=== PATIENT | female | born 1950 | race Caucasian/White ===

== ENCOUNTER 2021-06-14 17:57 | Inpatient (IN) | payer MEDICAID, SELFPAY ==
[~2021-06-14] VITALS: Ht 162.6 cm; Wt 49.9 kg
[2021-06-14 18:26] VITALS: BP 176/98
[2021-06-14 19:04] LABS: BASOPHILS % (AUTO) 0.7 % (0.0-2.0); EOSINOPHILS % (AUTO) 0.3 % (0.0-4.0); HEMATOCRIT 44.3 % (36-48); HEMOGLOBIN 14.9 g/dL (12.0-16.0); LYMPHOCYTES # (AUTO) 1.5 K/uL (2.5-16.5); LYMPHOCYTES % (AUTO) 22.7 % (20.5-51.1); MEAN CORPUSCULAR HEMOGLOBIN 32 pg (27-31); MEAN CORPUSCULAR HGB CONC 34 g/dL (33-37); MEAN CORPUSCULAR VOLUME 93.7 fL (80-94); MONOCYTES # (AUTO) 0.4 K/uL (0.8-1.0); MONOCYTES % (AUTO) 5.7 % (1.7-9.3); NEUTROPHILS # (AUTO) 4.5 K/uL (1.8-7.7); NEUTROPHILS % (AUTO) 70.6 % (42.2-75.2); PLATELET COUNT (AUTO) 203 K/uL (140-450); RED BLOOD CELL COUNT(AUTO) 4.72 MIL/uL (4.20-5.40); RED CELL DISTRIBUTION WIDTH 14.5 % (11.6-13.7); WHITE BLOOD COUNT (AUTO) 6.4 K/uL (4.8-10.8)
--- NOTE | 2021-06-14 19:05 | NUR ---
BIBA BLS TO ER BED 7
[2021-06-14 19:56] LABS: ALBUMIN 3.5 g/dL (3.4-5.0); ANION GAP 13.6 (8-16); ASPARTATE AMINOTRANSFERASE 33 U/L (15-37); CARBON DIOXIDE 24.5 mmol/L (21-32); CHLORIDE 102 mmol/L (98-107); CREATININE 1.1 mg/dL (0.6-1.3); GLUCOSE 108 mg/dL (74-106); POTASSIUM 4.1 mmol/L (3.5-5.1); SODIUM SERUM 136 mmol/L (136-145); TOTAL BILIRUBIN 0.5 mg/dL (0.0-1.0); UREA NITROGEN, BLOOD 29 mg/dL (7-18)
[2021-06-14 19:58] LABS: ACETAMINOPHEN < 0.5 ug/ml (10-30); SALICYLATE < 2.8 mg/dL (2.8-20.0)
--- NOTE | 2021-06-14 20:14 | NUR ---
70 YO/F BIBA FROM HOME, PER PT REPORTS SHE WAS JUST RIN HERE BECAUSE HER HOUSE IS FILTHY AND HAS TOO MANY CATS. PT REPORTS HAVING 15 CATS. PT DENIES ANY PAIN, CHEST PAIN, SOB, FEVERS, CHILLS, N/V/D. PT LAST MEAL WAS EARLIER TODAY FOR LUNCH TIME, LAST BM THIS MORNING. PT DENIES ANY SYMPTOMS. AOX4, GCS 15. PT LAYING IN BED LOCKED IN LOWEST POSITION W X2 SIDERAILS UP FOR PT SAFETY. PT HYPERTENSIVE AT 168/72 BUT OTHERWISE VSS. BREATHING EVEN AND UNLABORED. NAD NOTED, WILL CONTINUE TO MONITOR. PMH: DENIES ALLERGIES: DENIES
--- NOTE | 2021-06-14 20:19 | NUR ---
PT AMBULATED TO BATHROOM W STEADY GAIT. URINE SAMPLE COLLECTED AND SENT TO LAB. PTOVIDED PT W BLANKET AND SANDHICH AND MILK.
--- NOTE | 2021-06-14 21:04 | NUR ---
PT ON PHONE W DAUGHTER KULDIP.
[2021-06-14 21:48] LABS: BILIRUBIN,URINE NEGATIVE (NEGATIVE); BLOOD, URINE NEGATIVE (NEGATIVE); COLOR,URINE YELLOW (YELLOW); LEUKOCYTE ESTERASE ,URINE TRACE (NEGATIVE); NITRITE, URINE NEGATIVE (NEGATIVE); UGLUCOSE NEGATIVE (NEGATIVE)
[2021-06-14 22:00] LABS: APPEARANCE,URINE HAZY (CLEAR)
[2021-06-14 22:06] LABS: BARBITURATE, URINE NEGATIVE ng/ml (NEG <=200); BENZODIAZEPINE, URINE NEGATIVE ng/mL (NEG <=200); CANNABINOID, URINE NEGATIVE ng/mL (NEG <=50); COCAINE, URINE NEGATIVE ng/mL (NEG <=300); OPIATE, URINE NEGATIVE ng/mL (NEG <=2000); PHENCYCLIDINE SCREEN,URINE NEGATIVE ng/mL (NEG <=25)
--- NOTE | 2021-06-14 22:17 | NUR ---
PT LAYING IN BED READING A MAGAZINE. ALL NEEDS MET.
[2021-06-14 22:29] LABS: RBC,URINE 0-5 /HPF (0-5)
--- NOTE | 2021-06-14 22:57 | NUR ---
PACKET FAXED TO [facility].
--- NOTE | 2021-06-15 00:02 | NUR ---
PT APPEARS TO BE RESTING W EYES CLOSED IN L LATERAL POSITION W XW SIDERAILS UP FOR SAFETY. BLANKET ON, BREATHING EVEN AND UNLABORED. VSS. NAD NOTED, WILL CONTINUE TO MONITOR.
--- NOTE | 2021-06-15 00:57 | NUR ---
PT BP 162/75, ERMD MADE AWARE.
[2021-06-15] MEDS ORDERED: CLONIDINE HYDROCHLORIDE 0.1 MG TAB PO ONE (01:00)
[2021-06-15] MEDS ORDERED: cephALEXin 500 MG CAP PO ONE (01:40)
--- NOTE | 2021-06-15 02:00 | NUR ---
PT APPEARS TO BE RESTING W EYES CLOSED IN SUPINE POSITION W X2 SIDERAILS UP FOR SAFETY. BLANKET ON, BREATHING EVEN AND UNLABORED. VSS. NAD NOTED, WILL CONTINUE TO MONITOR.
--- NOTE | 2021-06-15 04:17 | NUR ---
PT APPEARS TO BE RESTING W EYES CLOSED IN R LATERAL POSITION W X2 SIDERAILS UP FOR SAFETY. BLANKET ON, BREATHING EVEN AND UNLABORED. VSS. NAD NOTED, WILL CONTINUE TO MONITOR.
--- NOTE | 2021-06-15 04:57 | NUR ---
PT AMBULATED TO BATHROOM W STEADY GAIT.
--- NOTE | 2021-06-15 06:00 | NUR ---
AWAKE , NO COMPLAIN MADE
--- NOTE | 2021-06-15 06:23 | NUR ---
NO CHANGE IN PT STATUS. PT APPEARS TO BE RESTING W EYES CLOSED IN L LATERAL POSITION W X2 SIDERAILS UP FOR SAFETY. VSS.
--- NOTE | 2021-06-15 06:23 | NUR ---
Vernon taveras in [facility] - 06/15/21 at 0625 by ZOILA NO CHANGE IN PT STATUS.
--- NOTE | 2021-06-15 07:16 | NUR ---
Pt report given to MECHELLE MCGHEE. Transfer of care at this time.
--- NOTE | 2021-06-15 07:16 | NUR ---
Vernon taveras in [facility] - 06/15/21 at 0720 by ZOILA Pt report given to JALEESA MCGHEE. Transfer of care at this time.
--- NOTE | 2021-06-15 07:17 | NUR ---
REPORT RECEIVED FROM JALEESA KAPLAN FOR PATIENT CONTINUITY OF CARE.
[2021-06-15] MEDS ORDERED: NITR100C7 PO (07:28)
--- NOTE | 2021-06-15 08:10 | NUR ---
PATIENT PROVIDED WITH BREAKFAST TRAY AT BEDSIDE, ALL PATIENT NEEDS MET AT THIS TIME, WILL CONTINUE TO MONITOR.
--- NOTE | 2021-06-15 09:10 | NUR ---
PATIENT COMPLETED 100% OF BREAKFAST TRAY AT THIS TIME.
--- NOTE | 2021-06-15 09:35 | NUR ---
PATIENT READING QUIETLY IN BED, NO SIGNS OF DISTRESS NOTED AT THIS TIME. SAFETY PRECAUTIONS CONTINUED IN PLACE. WILL CONTINUE TO MONITOR.
[2021-06-15] MEDS ORDERED: MAG SULF 2000 MG/WATER PREMIX 50 ML IV PRN (10:00)
[2021-06-15] MEDS ORDERED: LORazepam 2 MG/ML VIAL IM/IVP PRN (10:00)
[2021-06-15] MEDS ORDERED: ACETAMINOPHEN 325 MG TAB PO PRN (10:00)
[2021-06-15] MEDS ORDERED: ONDANSETRON 4 MG/2 ML VIAL IVP PRN (10:00)
[2021-06-15] MEDS ORDERED: DOCUSATE SODIUM 100 MG GELCAP PO PRN (10:00)
[2021-06-15] MEDS ORDERED: POTASSIUM CHLORIDE 10 MEQ TABER PO PRN (10:00)
[2021-06-15] MEDS ORDERED: HYDROcodone/APAP 5/325 MG 1 TAB TAB PO PRN (10:00)
[2021-06-15] MEDS ORDERED: MORPHINE SULFATE 2 MG/ML SYR IVP PRN (10:00)
[2021-06-15] MEDS ORDERED: SODIUM PHOS / POTASSIUM PHOS 1 PKT PDR PO PRN (10:00)
[2021-06-15] MEDS ORDERED: ZOLPIDEM 5 MG TAB PO PRN (10:00)
[2021-06-15] MEDS: NACL 0.9% 1,000 ML IV SCH ×2 (10:32→21:43)
--- NOTE | 2021-06-15 11:05 | NUR ---
Patient will be admitted to care of DR. LEON. Admited to MED SURG. Will go to room 128 B. Belongings list completed. Report to JALEESA BLANCO.
--- NOTE | 2021-06-15 11:06 | NUR ---
Chart checked and completed. The patient's care was reviewed and supervised by Angy Randall RN.
[2021-06-15 11:27] LABS: PHOSPHORUS 2.7 mg/dL (2.5-4.9)
--- NOTE | 2021-06-15 11:53 | NUR ---
RECEIVED PT FROM ER, PT IN STABLE CONDITION. PT AOx4, VSS, NAD NOTED. PT HAS LAC 20G RUNNING NS@100CC. WILL CONTINUE TO MONITOR.
[2021-06-15 12:05] VITALS: BP 142/76
--- NOTE | 2021-06-15 14:39 | NUR ---
DC PLANNING: DC PLANNING: THE PATIENT WAS BIBA FROM HOME ON A 5150 HOLD FOR BEING GRAVELY DISABLED. CHENG SPOKE WITH THE PATIENT AT BEDSIDE AND CONFIRMED HER ADDRESS AND PHONE NUMBER. CONTACTS FOR THE PATIENT ARE HER DAUGHTER KULDIP SINCLAIR WHO LIVES IN [facility], PHONE NUMBER [phone], FRIEND WING, PHONE NUMBER [phone], AND FRIEND SUDHEER WHO LIVES ON [place] AND HELPS THE PATIENT, PHONE NUMBER [phone]. CM SPOKE WITH THE PATIENT AT BEDSIDE, SHE STATES THAT SHE KNOWS THE HOUSE HAS GOTTEN OUT OF CONTROL. [facility] [employer] GAVE HER A WEEK TO GET IT CLEANED BUT REVISITED AFTER 3 DAYS. THE PATIENT HAD MULTIPLE ANIMALS, MANY OF WHICH WERE REMOVED BY ANIMAL CONTROL. SHE LIVES WITH HER WHO IS ALSO IN THE HOSPITAL FOR A DX OF GRAVE DISABILITY AND IS INDEPENDENT IN ALL ACTIVITIES. NO DME OR H/O HOME HEALTH. 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 THE HOUSE DOES NOT HAVE A LOCK, THE PATIENT IS UNINSURED AND HAS NOT SEEN A DOCTOR SINCE SHE HAD HER CHILDREN. THE PATIENT WAS ALERT AND AWARE OF THE CURRENT SITUATION AND SOME OF WHAT IS NEEDED TO CORRECT IT SUCH GETTING THE HOUSE CLEARED OUT AND CLEANED BUT DID NOT FEEL THAT THE LACK OF A DOOR LOCK, INSURANCE AND CLEAN LITTER BOXES FOR HER CATS WERE OUTSIDE OF THE NORM. CHENG SPOKE WITH THE PATIENTS DAUGHTER CHOCO WHO STATES SHE IS AWARE THAT HER MOTHER IS IN THE HOSPITAL, STATES THAT SPOUSE IS NOT HER FATHER. ASKED WHY MOTHER AND MR PEREZ WERE GRAVELY ILL, CHENG EXPLAINED THAT THEY WERE ADMITTED FOR BEING GRAVELY DISABLED BECAUSE OF THE CONDITION OF THE HOUSE. SHE STATES THAT SHE HAS VISITED HER MOTHER BUT WAS NEVER ALLOWED IN THE HOUSE HER MOTHER STATED IT WAS TOO DIRTY. WAS NOT AWARE THAT HER MOTHER IS UNINSURED OR THE FRONT DOOR WITHOUT A LOCK. CHENG ASKED HOW KULDIP PLANS TO ASSIST WITH THE OVERALL SITUATION, SHE STATES THAT A FRIEND OF THE PATIENT, WING IS GOING TO ASSIST WITH CLEANING AND HAS GOTTEN A DUMPSTER. CHENG ENDORSED THAT A CLEANING CREW MIGHT BE NEEDED AND STATED THAT WING WILL BE CALLED TO SEE IF SHE HAS RESOURCES FOR CLEANING THE HOUSE. THE PATIENT HAD STATED THAT THE ONLY INCOME SOURCE IS HER SPOUSE SSI AND SNF WHICH IS $1000/MONTH BUT THAT THEY HAD AN INHERITANCE FROM HER HUSBANDS MOTHER AND ARE ABLE TO AFFORD A CLEANING CREW AND CONDUCTOR/ENGINEER. CHOCO WILL BE COMING TO VISIT NEXT SUNDAY AND ASKED IF HE PATIENT CAN DC TO ANOTHER HOUSE OR HOTEL, CHENG ENDORSED THAT IF THEY ARE NOT ON A 5150 THIS MIGHT BE POSSIBLE. AUGUSTO LEFT FOR WING ASKING FOR AN UPDATE ON THE HOUSE, CHENG WILL FOLLOW. Addendum: 06/15/21 at 1514 by Shanice Grace CM Amended: Links added. Addendum: 06/15/21 at 1735 by Shanice Grace CM DC PLANNING: PATIENT VISITED BY [facility] [employer] AND ANIMAL RESCUE. OFFICE MUKESH FRANKLIN ([phone]) WAS UPDATED ON CHENG'S ATTEMPTS TO SPEAK WITH FAMILY AND FRIENDS REGARDING CLEANING THE HOUSE. DAIN ROMAN ALSO CAME TO SPEAK WITH THE PATIENT SHE HAS A CAT RESCUE. STATED THAT ANIMAL CONTROL WAS AT THE PATIENTS HOUSE AND THAT THEY WERE GOING TO TAKE HER CATS UNLESS THE PATIENT WAS WILLING TO SIGN PAPERWORK. PAPERWORK SIGNED BY THE PATIENT, CHENG THEN RECEIVED A CALL FROM HER FRIEND WING KRAUSE. WING IS A CO-TRUSTEE WITH THE PATIENT FOR MR. PEREZ AND HIS FINANCES AND IS ARRANGING FOR A CREW TO CLEAN THE HOUSE AND MAKE REPAIRS. SHE WILL CALL THE BANK TO SEE IF THE CURRENT SIGNED AND NOTARIZED FORMS CAN BE USED TO ACCESS FUNDS TO PAY FOR REPAIRS. PER WING AND CODE ENFORCEMENT THERE WAS NO RUNNING WATER IN THE HOUSE AND THE TOILETS ARE NOT WORKING. WING WAS GIVEN THE CONTACT INFORMATION FOR THE DAIRY ASSOCIATE TO UPDATE HER ON EFFORTS TO GET THE HOUSE TO CODE. CHENG WILL FOLLOW. Addendum: 06/16/21 at 1533 by Shanice Grace CM DC PLANING: CHENG RECEIVED A CALL FROM SCOTT Brady, DAIRY ASSOCIATE FOR [employer]. HE ASKED THAT A SIGNED STATEMENT BE SENT TO HIM STATING THAT THE PATIENT AND HER SPOUSE ARE GIVING THEIR FRIEND WING KRAUSE PERMISSION TO COME ON TO THEIR PROPERTY TO START CLEANING AND REPAIRING THEIR HOUSE. LETTER TYPED AND SIGNED BY THE PATIENT AND HER SPOUSE AND EMAILED TO SCOTT. CHENG ALSO SPOKE WITH THEIR FRIEND IWNG TO UPDATE HER ON CODE ENFORCEMENTS REQUEST AND ALSO TO REMIND HER THAT THE PATIENTS DOG IS WITH THE HUMAN SOCIETY AND NEEDS TO BE PICKED UP, SHE STATES SHE WILL DO THIS. CHENG WILL FOLLOW FOR NEEDS. Addendum: 06/17/21 at 1226 by Shanice Grace CM DC PLANNING: CHENG SPOKE WITH THE PATIENTS DAUGHTER CHOCO TO UPDATE HER ON THE OVERALL SITUATION WITH HER MOTHER AND STEP FATHER. CHOCO STATES THAT HE SON AND DAUGHTER ARE WILLING TO HAVE THIS COUPLE STAY WITH THEM, INCLUDING THEIR DOG TEETEE. THE HOUSE ARE IN [place], UNCLEAR WHICH AREA THE PATIENT WILL GO TO, CHOCO WILL CALL WITH FINAL DETERMINATION. THE PATIENT MAY NEED TO STAY IN A MOTEL TEMPORARILY TO FINALIZE FINANCES AND OTHER ARRANGEMENTS. THEIR FRIEND WING WILL COME TO VISIT TODAY TO DISCUSS THE ARRANGEMENTS SHE HAS MADE FOR HOUSE CLEAN UP AND REPAIR AND TO DISCUSS FINANCIAL ARRANGEMENTS. PATIENT SCHEDULED FOR TELEPSYCH EVALUATION TODAY AT 1400, CHENG WILL BE THERE TO ADDRESS DC PLANNING AND WILL FOLLOW FOR NEEDS. Addendum: 06/17/21 at 1624 by Shanice Grace CM DC PLANNING: PATIENT CLEARED BY PSYCH, RECOMMENDING DEMENTIA W/U. VM LEFT FOR THE PATIENTS DAUGHTER CHOCO SINCLAIR ([phone]) LETTING HER KNOW THAT HER MOTHER AND STEP FATHER WILL BE DISCHARGING AND ASKING HER TO MAKE ARRANGEMENTS FOR WHERE THEY'RE GOING TO STAY. NO CALL BACK YET, CM ALSO SPOKE WITH THE PATIENT AND HER SPOUSE AT BEDSIDE TO LET THEM KNOW THAT THEY WILL NEED TO SPEAK WITH CHOCO AND THEIR FRIEND WING ([phone]) REGARDING ARRANGEMENTS WITH HOUSING AND MOVING FORWARD WITH CLEANING AND REPAIR OF THEIR HOUSE. ALSO ENDORSED THAT CM SPOKE WITH THE HUMAN SOCIETY IN [place] AND THAT THEY ARE HOLDING THEIR DOG TEETEE, AND THAT OFFICER ANTWAN VILCHIS IS THE ONE THAT THEY NEED TO SPEAK WITH REGARDING RELEASING THEIR DOG THERE IS A POTENTIAL COURT CASE. CM WILL FOLLOW FOR NEEDS.
--- NOTE | 2021-06-15 15:41 | NUR ---
Aware of patient and can assist with placement. Patient on hold for GD for a dirty home and unable to care for self and has an abundance of cats. Patient is alert and aware of situation. Intake information was discussed with Damian Knox/Ana. Intake faxed for review for placement.
[2021-06-15 16:00] VITALS: BP 146/84
--- NOTE | 2021-06-15 16:04 | NUR ---
[facility]
--- NOTE | 2021-06-15 16:23 | NUR ---
PATIENT HAS BEEN SCREENED AND CATEGORIZED MODERATE NUTRITION RISK. PATIENT WILL BE SEEN WITHIN 3-5 DAYS OF ADMISSION. BETTYE MENDEZ RD
--- NOTE | 2021-06-15 18:57 | NUR ---
PT IN STABLE CONDITION, SAFETY MEASURES IN PLACE. WILL ENDORSE TO RESUME WRITER RN.
--- NOTE | 2021-06-15 19:20 | NUR ---
ENDORSED CARE TO AGENT TICKETING GATE RN, PT IN STABLE CONDITION.
--- NOTE | 2021-06-15 19:20 | NUR ---
RECIEVED PT , AAOX4 , NID - O2 SAT WNL , IV SITE INTACT AND PATENT , CALL LIGHT WITHIN REACH . DENIES ANY PAIN . WILL CONT. TO MONITOR ,.
[2021-06-15 20:00] VITALS: BP 140/70
--- NOTE | 2021-06-16 | NUR ---
ROUND , NO COMPLAIN MADE .
[2021-06-16 04:00] VITALS: BP 150/100
[2021-06-16] MEDS: NACL 0.9% 1,000 ML IV SCH ×2 (06:00→16:26)
--- NOTE | 2021-06-16 06:00 | NUR ---
BP 150/100 - NO COMPLAIN MADE .
[2021-06-16 06:39] LABS: BASOPHILS % (AUTO) 0.7 % (0.0-2.0); EOSINOPHILS # (AUTO) 0.1 K/uL (0-0.4); EOSINOPHILS % (AUTO) 1.3 % (0.0-4.0); HEMATOCRIT 43.2 % (36-48); HEMOGLOBIN 14.3 g/dL (12.0-16.0); LYMPHOCYTES # (AUTO) 1.9 K/uL (2.5-16.5); LYMPHOCYTES % (AUTO) 36.6 % (20.5-51.1); MEAN CORPUSCULAR HEMOGLOBIN 31 pg (27-31); MEAN CORPUSCULAR HGB CONC 33 g/dL (33-37); MEAN CORPUSCULAR VOLUME 94.5 fL (80-94); MONOCYTES # (AUTO) 0.4 K/uL (0.8-1.0); NEUTROPHILS # (AUTO) 2.8 K/uL (1.8-7.7); NEUTROPHILS % (AUTO) 53.4 % (42.2-75.2); PLATELET COUNT (AUTO) 201 K/uL (140-450); RED BLOOD CELL COUNT(AUTO) 4.57 MIL/uL (4.20-5.40); RED CELL DISTRIBUTION WIDTH 14.4 % (11.6-13.7); WHITE BLOOD COUNT (AUTO) 5.2 K/uL (4.8-10.8)
--- NOTE | 2021-06-16 07:43 | NUR ---
RECEIVED REPORT FROM PERINATAL TECHNICIAN RN, PT IN STABLE CONDITION. WILL CONTINUE TO MONITOR.
--- NOTE | 2021-06-16 07:43 | NUR ---
ENDORSED - PT - STABLE , ENDORSED RODRIGUES TO RE ASSESS THE BP .
[2021-06-16 11:30] LABS: ALBUMIN 2.7 g/dL (3.4-5.0); ASPARTATE AMINOTRANSFERASE 24 U/L (15-37); CARBON DIOXIDE 20.1 mmol/L (21-32); CHLORIDE 108 mmol/L (98-107); CREATININE 0.9 mg/dL (0.6-1.3); GLUCOSE 96 mg/dL (74-106); MAGNESIUM 1.6 mg/dL (1.8-2.4); POTASSIUM 4.1 mmol/L (3.5-5.1); SODIUM SERUM 141 mmol/L (136-145); TOTAL BILIRUBIN 0.4 mg/dL (0.0-1.0); UREA NITROGEN, BLOOD 26 mg/dL (7-18)
[2021-06-16 11:54] VITALS: BP 148/92
--- NOTE | 2021-06-16 12:15 | NUR ---
Michael/Damian Knox. Called to inquire about review. They are still discussing with the physician however their concern is for the disposition of patient. Requesting for SW to assist with the direction of disposition once the psychiatiric care is addressed. this will help in placing the patient.
--- NOTE | 2021-06-16 18:31 | NUR ---
PER CM PT'S CAR KEYS WERE TO BE PICKED UP BY CODE ENFORCEMENT OFFICERS IN ORDER TO MOVE PT'S CAR. PT IS AWARE. KEYS PICKED UP BY OFFICER RIGOBERTO AND QUARTER FOLDER.
[2021-06-16 20:00] VITALS: BP 146/69
--- NOTE | 2021-06-16 22:03 | NUR ---
PATIENT IS AAOX4 ON ROOM AIR. NO S/S OF RESPIRATORY DISTRESS. RESPIRATION EVEN UNLABORED. NO COMPLAINTS OF PAIN. ALL SAFETY PRECAUTIONS ARE IN PLACE. CALL LIGHT WITHIN REACH. WILL CONTINUE TO MONITOR.
[2021-06-17] MEDS: NACL 0.9% 1,000 ML IV SCH ×3 (02:45→22:00)
--- NOTE | 2021-06-17 02:52 | NUR ---
ROUNDED PATIENT, PT IS SLEEPING. OBSERVED CHEST RISE AND FALL, UNLABORED BREATHING.
[2021-06-17 04:00] VITALS: BP 154/73
[2021-06-17 05:56] LABS: BASOPHILS % (AUTO) 0.4 % (0.0-2.0); EOSINOPHILS # (AUTO) 0.1 K/uL (0-0.4); EOSINOPHILS % (AUTO) 1.5 % (0.0-4.0); HEMATOCRIT 42.6 % (36-48); HEMOGLOBIN 14.4 g/dL (12.0-16.0); LYMPHOCYTES % (AUTO) 28.5 % (20.5-51.1); MEAN CORPUSCULAR HEMOGLOBIN 32 pg (27-31); MEAN CORPUSCULAR HGB CONC 34 g/dL (33-37); MEAN CORPUSCULAR VOLUME 93.5 fL (80-94); MONOCYTES # (AUTO) 0.6 K/uL (0.8-1.0); MONOCYTES % (AUTO) 8.7 % (1.7-9.3); NEUTROPHILS # (AUTO) 4.2 K/uL (1.8-7.7); NEUTROPHILS % (AUTO) 60.9 % (42.2-75.2); PLATELET COUNT (AUTO) 197 K/uL (140-450); RED BLOOD CELL COUNT(AUTO) 4.56 MIL/uL (4.20-5.40); RED CELL DISTRIBUTION WIDTH 14.4 % (11.6-13.7)
[2021-06-17 06:07] LABS: ANION GAP 11.3 (8-16); ASPARTATE AMINOTRANSFERASE 23 U/L (15-37); CARBON DIOXIDE 24.9 mmol/L (21-32); CHLORIDE 107 mmol/L (98-107); CREATININE 0.9 mg/dL (0.6-1.3); GLUCOSE 95 mg/dL (74-106); MAGNESIUM 1.9 mg/dL (1.8-2.4); POTASSIUM 4.2 mmol/L (3.5-5.1); SODIUM SERUM 139 mmol/L (136-145); TOTAL BILIRUBIN 0.4 mg/dL (0.0-1.0); UREA NITROGEN, BLOOD 26 mg/dL (7-18)
--- NOTE | 2021-06-17 07:30 | NUR ---
ENDORSED PATIENT TO NURSE THEODORE FOR CONTINUITY OF CARE. PT IS STABLE.
--- NOTE | 2021-06-17 07:31 | NUR ---
RECEIVED ENDORSEMENT FROM GUADALUPE LAZCANO FOR CONTINUITY OF CARE. PT IS STABLE IN BED. A&OX4. VERBALLY RESPONSIVE AND ABLE TO COMMUNICATE NEEDS. DENIES PAIN. ON ROOM AIR. RESPIRATIONS EVEN AND UNLABORED WITH NO APPARENT S/SX OF ACUTE DISTRESS. PATIENT IS AMBULATORY AND CONTINENT. SKIN IS INTACT. PATIENT'S IV SITE TO THE LAC 22G IS PATENT/INTACT WITH NS INFUSING AT 100 ML/HR. POC UPDATED. ALL SAFETY MEASURES IN PLACE. CALL LIGHT WITHIN REACH. WILL CONTINUE TO MONITOR.
[2021-06-17 08:39] LABS: ALBUMIN 2.8 g/dL (3.4-5.0)
--- NOTE | 2021-06-17 09:35 | NUR ---
PT ENDORSED TO AUBRIE MIN FOR CONTINUITY OF CARE. PT IS STABLE.
--- NOTE | 2021-06-17 09:36 | NUR ---
RECEIVED REPORT FROM THEODORE MIN. ASSUMED CARE FOR PT. RESPIRATIONS ARE EVEN AND UNLABORED. NO SIGNS OF DISTRESS NOTED. CALL LIGHT WITHIN REACH. ALL SAFETY MEASURES IN PLACE. WILL CONTINUE TO MONITOR.
--- NOTE | 2021-06-17 12:42 | NUR ---
Spoke with Stacey DOAN in regards to disposition @ phsychiatric care. Brigida DOAN is working with patient going with family members (grand children) until home and patient is safe to return home. Called to Damian Knox/Neha discussed the plan, refaxed intake information. She will review, she is also aware patient will have a f/u telespych consult @ 14:00 06/17.
--- NOTE | 2021-06-17 12:56 | NUR ---
DID ROUNDS ON PT. PT IN BED SLEEPING AT THIS TIME. RESPIRATIONS ARE EVEN AND UNLABORED ON ROOM AIR. NO SIGNS OF PAIN OR DISCOMFORT NOTED. CALL LIGHT WITHIN REACH. ALL SAFETY MEASURES IN PLACE. WILL CONTINUE TO MONITOR.
[2021-06-17 16:00] VITALS: BP 128/84
--- NOTE | 2021-06-17 16:36 | NUR ---
ASSISTED PT TO AMBULATE TO REST ROOM. NO COMPLAINTS OF PAIN OR DISCOMFORT AT THIS TIME. PT TOLERATED WELL. WILL CONTINUE TO MONITOR.
--- NOTE | 2021-06-17 19:22 | NUR ---
ENDORSED PT TO STACK CLERK NURSE FOR CONTINUITY OF CARE. NO COMPLAINTS OF PAIN OR DISCOMFORT NOTED. ALL NEEDS MET THROUGHOUT SHIFT. PT IS STABLE.
--- NOTE | 2021-06-17 22:55 | NUR ---
PATIENT AAOX4, WELL RESTED IN BED. NO ACUTE DISTRESS, ON ROOM AIR. IVF NS INFUSING WELL. ABLE TO AMBULATE TO THE RESTROOM. SAFETY MEASURES IN PLACE. NO COMPLAINTS OF PAIN. CALL LIGHT WITHIN REACH.
[2021-06-18] VITALS: BP 132/76
--- NOTE | 2021-06-18 04:00 | NUR ---
ROUNDED PT, PATIENT ASLEEP NO DISTRESS NOTED. CALL LIGHT ON EASY REACH.
[2021-06-18 06:59] LABS: BASOPHILS % (AUTO) 0.6 % (0.0-2.0); EOSINOPHILS # (AUTO) 0.1 K/uL (0-0.4); EOSINOPHILS % (AUTO) 1.4 % (0.0-4.0); HEMATOCRIT 40.5 % (36-48); HEMOGLOBIN 13.7 g/dL (12.0-16.0); LYMPHOCYTES # (AUTO) 1.9 K/uL (2.5-16.5); MEAN CORPUSCULAR HEMOGLOBIN 32 pg (27-31); MEAN CORPUSCULAR HGB CONC 34 g/dL (33-37); MEAN CORPUSCULAR VOLUME 93.8 fL (80-94); MONOCYTES # (AUTO) 0.7 K/uL (0.8-1.0); NEUTROPHILS # (AUTO) 4.4 K/uL (1.8-7.7); PLATELET COUNT (AUTO) 199 K/uL (140-450); RED BLOOD CELL COUNT(AUTO) 4.31 MIL/uL (4.20-5.40); RED CELL DISTRIBUTION WIDTH 14.2 % (11.6-13.7); WHITE BLOOD COUNT (AUTO) 7.2 K/uL (4.8-10.8)
--- NOTE | 2021-06-18 07:30 | NUR ---
RECEIVED ENDORSEMENT FROM ACUTE SPECIALIST NURSE FOR CONTINUITY OF CARE. PATIENT AWAKE AND REQUESTED FOR HER IV TO BE REMOVE ALREADY. EXPLAINED THAT THERE'S NO ORDER TO DISCONTINUE AT THIS TIME, BUT WE WILL INFORM THE MD OF SUCH CONCERN.
--- NOTE | 2021-06-18 07:30 | NUR ---
ENDORSED TO AM NURSE FOR CONTINUITY OF CARE. PT IN STABLE CONDITION.
--- NOTE | 2021-06-18 07:50 | NUR ---
INFORM DR. HERNANDEZ OF PT REQUEST FOR IV TO BE REMOVE AND HE OKAY TO DISCONTINUE THE IV HYDRATION.
[2021-06-18 08:00] VITALS: BP 99/63
--- NOTE | 2021-06-18 09:16 | NUR ---
(06/18/21) RD INITIAL ASSESSMENT COMPLETED PLEASE REFER TO NUTRITION PROGRESS NOTE UNDER CARE ACTIVITY FOR ESTIMATED NUTRITION NEEDS. RD RECOMMENDATIONS: 1. CONTINUE CARDIAC DIET TOLERATED 2.RD WILL F/U 5-7 DAYS; LOW RISK. RANDAL HOUGH MS, RDN
--- NOTE | 2021-06-18 10:39 | NUR ---
RESIDENT HAS DISCHARGE ORDER ALREADY. RN SPOKE TO DAUGHTER REGARDING THE DISCHARGE ORDER FOR AND PATIENT DISCHARGE AND SHE SAID WILL LET US KNOW WHAT EXACTLY WHAT TIME THEY WILL LIFE SCIENTIST THE PATIENT. PTIENT AWARE OF DISCHARGE ORDER. ON BED RESTING. CALL LIGHT WITH IN EASY REACH.
[2021-06-18 10:43] VITALS: BP 99/63
[2021-06-18 10:57] VITALS: BP 100/63
--- NOTE | 2021-06-18 12:14 | NUR ---
RECEIVED CALL KENDRA CHRISTIANSEN THAT SHE KNOWS THAT THERE'S A DISCHARGE ORDER AFTER LUNCH BUT PATIENT HAS NO [place] OR CHECKED AND NO WHERE TO GO AT THIS TIME IF WE CAN LET THE DOCTOR AWARE IF THEY CAN STILL STAY FOR 1 MORE DAY.
--- NOTE | 2021-06-18 12:21 | NUR ---
LEFT MESSAGE TO DR. HERNANDEZ REGARDING THE CONCERN OF DISCHARGE. WAITING FOR RESPONSE.
--- NOTE | 2021-06-18 13:02 | NUR ---
DR. HERNANDEZ RESPONDED THAT IT'S OKAY TO BE DISCHARGE TOMORROW.
--- NOTE | 2021-06-18 14:59 | NUR ---
DR. ERVIN ORDER TO PUT PATIENT ON LIQUID DIET TODAY AND ADVANCE TO SOFT DIET TOMORROW. Addendum: 06/18/21 at 1501 by Marcela Hoff LVN WRONG PATIENT.
--- NOTE | 2021-06-18 15:07 | NUR ---
JALEESA HANG IV ANTIBIOTIC.
[2021-06-18 15:22] LABS: ALBUMIN 2.8 g/dL (3.4-5.0); ASPARTATE AMINOTRANSFERASE 25 U/L (15-37); CHLORIDE 115 mmol/L (98-107); GLUCOSE 113 mg/dL (74-106); SODIUM SERUM 150 mmol/L (136-145); TOTAL BILIRUBIN 0.2 mg/dL (0.0-1.0); UREA NITROGEN, BLOOD 28 mg/dL (7-18)
--- NOTE | 2021-06-18 15:30 | NUR ---
MAGNESIUM LEVEL OF 0.5 TODAY FROM 1.9 YESTERDAY REQUESTED FOR REDRAW.
[2021-06-18 16:06] LABS: MAGNESIUM 1.7 mg/dL (1.8-2.4)
[2021-06-18] MEDS ORDERED: NITR100C7 PO (16:19)
--- NOTE | 2021-06-18 16:24 | NUR ---
DISCHARGE PACKET GIVEN TO PATIENT WITH INSTRUCTION. VERBALIZED UNDERSTANDING. REMOVED IV SITE WITH CATHETER INTACT, NAME BAND REMOVED. ALL BELONGING TAKEN. WHEELED TO FRONT LOBBY TO THE PRIVATE OF THEIR FRIEND DELROY PICK HER AND UP.
== END 2021-06-18 16:25 | disposition home or self-care (01) | DRG 52 ==
LOC: MED 17:57 → MTU 06-15 10:01 → MMU 06-15 10:32
PROVIDERS: ADMIT Family Medicine; ATTEND Family Medicine
DX: G92.8 Other toxic encephalopathy (principal); E43 Unspecified severe protein-calorie malnutrition; Z20.822 Contact with and (suspected) exposure to COVID-19; M41.35 Thoracogenic scoliosis, thoracolumbar region; F17.210 Nicotine dependence, cigarettes, uncomplicated; J44.9 Chronic obstructive pulmonary disease, unspecified; Z85.42 Personal history of malignant neoplasm of other parts of uterus; Z68.1 Body mass index [BMI] 19.9 or less, adult; Z79.899 Other long term (current) drug therapy
CPT/HCPCS: 36415; 71045; 80053; 80305; 81001; 82150; 83690; 83735; 83880; 84100; 84484; 85025; 85610; 85730; 87081; 87086; 93005; 96360; 96361; 99285; G0480; G0482; J0696; J3475; J7030; J7060; Q0092; U0003

== ENCOUNTER 2021-08-31 09:51 | Emergency (ER) | payer SELFPAY ==
[~2021-08-31] VITALS: Ht 152.4 cm; Wt 45.9 kg
[~2021-08-31 09:51] MED LIST: NITR100C7 PO
[2021-08-31 09:54] VITALS: BP 159/75
--- NOTE | 2021-08-31 10:08 | NUR ---
70Y FEMALE BIB SELF DUE TO BILATERAL EAR PAIN. PER PT DAUGHTER PT IS HAVING TROUBLE HEARING X3 WEEKS. DENIES PAIN AT THIS TIME.PMH: DENIES.DENIES N/V/D; SKIN IS PINK/WARM/DRY; AAOX4 WITH EVEN AND STEADY GAIT; LUNGS CLEAR BL; HR EVEN AND REGULAR; PT DENIES ANY FEVER, CP, SOB, OR COUGH AT THIS TIME; PATIENT POSITIONED FOR COMFORT; HOB ELEVATED; BEDRAILS UP X1; BED DOWN. ER MD MADE AWARE OF PT STATUS.
--- NOTE | 2021-08-31 10:22 | NUR ---
Patient being evaluated by DR QUINONES at bedside.
--- NOTE | 2021-08-31 10:50 | NUR ---
IRRIGATED PTS RIGHT AND LEFT EAR USING SALINE WATER AND HYDROGEN PEROXIDE SOLUTION. CLEARED EARS AND PT STATED HEARING IMPROVED AFTER EAR FLUSH. ERMD NOTIFIED.
[2021-08-31 11:00] VITALS: BP 159/75
--- NOTE | 2021-08-31 11:00 | NUR ---
Patient discharged with v/s stable. Written and verbal after care instructions given and explained. Patient verbalized understanding. Ambulatory with steady gait. All questions addressed prior to discharge. Advised to follow up with PMD.
== END 2021-08-31 11:00 | disposition home or self-care (01) ==
LOC: MED 09:51
DX: H91.93 Unspecified hearing loss, bilateral (principal); F17.200 Nicotine dependence, unspecified, uncomplicated; Z79.899 Other long term (current) drug therapy; Z85.42 Personal history of malignant neoplasm of other parts of uterus
CPT/HCPCS: 99282